=== PATIENT | male | born 1970 | race Caucasian/White ===

== ENCOUNTER 2021-02-23 20:28 | Emergency (ER) | payer OTHER, BC ==
[2021-02-23 20:47] VITALS: RESP 18
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
[2021-02-23 23:02] VITALS: BP 140/89; PULSE 99; TEMP 98.3
== END 2021-02-23 23:04 | disposition home or self-care (01) ==
LOC: EC 20:28
DX: S80.02XA Contusion of left knee, initial encounter (principal); I10 Essential (primary) hypertension; Z87.891 Personal history of nicotine dependence; V89.2XXA Person injured in unspecified motor-vehicle accident, traffic, initial encounter; Y92.410 Unspecified street and highway as the place of occurrence of the external cause
CPT/HCPCS: 99284